=== PATIENT | female | born 1990 | race American Indian/Alaskan Native ===

== ENCOUNTER 2021-10-20 01:23 | Emergency (ER) | payer OTHER | END 2021-10-20 03:00 | LOC: JP.ED 01:23 | DX: S00.03XA Contusion of scalp, initial encounter (principal); S00.83XA Contusion of other part of head, initial encounter; U07.1 COVID-19; Y04.0XXA Assault by unarmed brawl or fight, initial encounter | CPT/HCPCS: 70450; 70486; 72125; 99283; 99284-25 ==